=== PATIENT | female | born 1980 | race Caucasian/White ===

== ENCOUNTER 2019-03-28 11:39 | Inpatient (IN) | payer BC, SELFPAY ==
[2019-03-28] VITALS (10 sets, daily range): BP systolic 112–150; BP diastolic 61–102; PULSE 66–104; RESP 16–20; TEMP 36.4–36.8; O2SAT 95–100; BMI 42.6
--- NOTE | 2019-03-28 | ECHO_ITS ---
Patient Info Name: Thania Hancock Age: 38 years : 1980 Gender: Female Ht: 62 in Wt: 230 lbs BSA: 2.20 m2 HR: 110 bpm BP: 150 / 93 mmHg Heart Rhythm: Tachycardia Technical Quality: Fair Exam Date: 03/28/2019 4:27 PM Exam Location: [facility] Card Pulmonary Patient Status: Inpatient Admit Date: 03/28/2019 Staff Ordering Physician: Amando Canales DO Senior Information Systems Architect: Seng Raymundo RDCS Attending Provider: Deon Garcia MD Exam Type: CA echo dop color flow w con Study Info Complete two-dimensional, color flow and Doppler transthoracic echocardiogram is performed with contrast to opacify the left ventrical and to improve the deliniation of the left ventrical endocarial boarders. Contrast/Agitated Saline Contrast/Ag. Saline: Definity Amount: 2.00 ml Administered By: Mesha De León RN History/Risk Factors Pulmonary embolism. Summary 1. Left ventricular systolic function is normal, estimated at 60-65%. 2. There is no increased left ventricular wall thickness. 3. Right ventricular chamber dimension is normal. Left Ventricle Left ventricular chamber dimension is normal. Left ventricular systolic function is normal, estimated at 60-65%. There is no increased left ventricular wall thickness. Left ventricular septal wall motion is normal. The left ventricular diastolic function is normal. Right Ventricle Right ventricular chamber dimension is normal. Right ventricular systolic function is normal. Left Atria Left atrial chamber dimension is normal. Right Atria Right atrial chamber dimension is normal. Aortic Valve The aortic valve is trileaflet. There is no aortic valve sclerosis. There is no aortic valve stenosis. There is no aortic valve regurgitation. Pulmonic Valve The pulmonic valve is normal. There is no pulmonic valve stenosis. There is no pulmonic regurgitation. Mitral Valve The mitral valve has normal leaflets. There is no mitral valve stenosis. There is no mitral valve regurgitation. Tricuspid Valve The tricuspid valve leaflets are normal. There is no significant tricuspid valve stenosis. There is trace tricuspid valve regurgitation. No pulmonary hypertension, estimated pulmonary arterial systolic pressure is 28 mmHg. Pericardium/Pleural The pericardium appears normal. There is no pericardial effusion. Inferior Vena Cava Normal inferior vena cava with >50% collapse upon inspiration consistent with normal right atrial pressure, 10 mmHg. Aorta The aortic root size at the sinus of Valsalva is normal. The prox ascending aorta size is normal. Left Ventricular Outflow Tract Name Value Normal LVOT 2D LVOT Diameter 2.07 cm LVOT Doppler LVOT Peak Gradient 8 mmHg LVOT Mean Gradient 3 mmHg LVOT VTI 20.10 cm LVOT VTI/AV VTI Ratio 0.77 LVOT Stroke Volume 67.39 ml LVOT CO 6.94 l/min LVOT CI 3.16
--- NOTE | ~2019-03-28 | US_ITS ---
EXAMINATION: US venous doppler [facility] DATE: 03/29/2019 15:44 INDICATION: Pulmonary emboli with dyspnea TECHNIQUE: Grayscale ultrasound images without and with compression and Doppler ultrasound images of the bilateral lower extremity veins were obtained. COMPARISON: None. FINDINGS: The visualized portions of right common femoral vein, profunda (deep) femoral vein, femoral vein, pop liteal vein, posterior tibial veins, peroneal veins, gastrocnemius vein and greater saphenous vein ou tflow are patent. The visualized portions of left common femoral vein, profunda femoral vein, femoral vein, popliteal v ein, posterior tibial veins, peroneal veins, gastrocnemius vein and greater saphenous vein outflow ar e patent. IMPRESSION: 1. No deep venous thrombosis in either lower limb. Reviewed, dictated and finalized at location A. NE MAMMAL TRAINER
--- NOTE | ~2019-03-28 | XR_ITS ---
EXAMINATION: XR chest 2V EXAM DATE: 03/28/2019 12:22 INDICATION: Cough and shortness of breath. TECHNIQUE: Frontal and lateral projections of the chest obtained and reviewed. Comparison is made to prior examination from 11/25/2013. FINDINGS: The lungs are clear. There are no pleural effusions. The cardiomediastinal silhouette is within normal limits. There is no pneumothorax suspected. The bones and soft tissues are unremarkab le. IMPRESSION: Normal chest x-ray exam. Reviewed, dictated and finalized at location A. NUE SPECIALIST IMPRESSION: Normal chest x-ray exam.
--- NOTE | ~2019-03-28 | CT_ITS ---
EXAMINATION: CTA chest PE protocol DATE: 03/28/2019 14:00 INDICATION: Dyspnea TECHNIQUE: Computed tomography angiography (CTA) of the chest was performed with 100 mL Omnipaque-350 intravenous contrast timed to evaluate the pulmonary arteries. Coronal maximum intensity projection 3D-reconstructions were created by the technologist. Automated exposure control and iterative reconst ruction technique were employed. Exam dose: 1945.63 mGy-cm total exam DLP. COMPARISON: 11/29/2013 CT pulmonary FINDINGS: There are multiple bilateral pulmonary emboli, involving especially both lower lobes. I te lephoned the findings immediately to ER physician Dr. Canales on 03/28/2019 at 1412 hours. No thoracic aortic aneurysm or dissection. No hilar or mediastinal mass lesion or lymphadenopathy. Th ere is a 4 mm middle lobe nodule. There is mild discoid atelectasis or scarring at the base of the lingula. No pulmonary consolidation . No pericardial or pleural effusion. Included skeletal structures are unremarkable. IMPRESSION: Extensive bilateral pulmonary emboli Reviewed, dictated and finalized at Location A. Reviewed, dictated and finalized at location B. E COVERER
--- NOTE | 2019-03-28 11:56 | ED.SOB ---
HPI - SOB/Dyspnea General Chief Complaint: Shortness of Breath/Dyspnea Stated Complaint: SOB Time Seen by Provider: 03/28/19 11:55 Source: patient Mode of arrival: ambulatory Limitations: no limitations History of Present Illness HPI Narrative: Pt is a 38 y/o female who presents to the ED with c/o SOB with exertion for 2 days. Pt reports associated cough. She states that she gets SOB when she talks or exerts herself in any way. Pt denies a fever, calf pain, or swelling in her extremities. Pt is on control and she denies a H/O blood clots. She denies smoking. MD elicited complaint: shortness of breath Onset (ago): day(s) (2) Exacerbating factors: exertion Relieving factors: rest Associated symptoms: cough Related Data Allergies Allergy/AdvReac Type Severity Reaction Status Date / Time No Known Allergies Allergy Verified 12/29/17 10:27 Review of Systems Review of Systems: All systems reviewed & are unremarkable except as noted in HPI and below Constitutional: Constitutional: Denies fever(s) Cardiovascular: Cardiovascular: Denies edema (to extremities) Respiratory: Respiratory: Reports cough and Reports dyspnea Musculoskeletal: Musculoskeletal: Denies other (calf pain) [facility] Past Medical History Medical History (Updated 03/28/19 @ 15:19 by Amando Canales DO) No significant past medical history Surgical History Surgical History (Updated 03/28/19 @ 12:43 by Patel Bales) Hx of cholecystectomy Family History Family History (Updated 01/05/18 @ 13:06 by DOCTOR UNKNOWN) Grandparent Diabetes mellitus Acute myocardial infarction Mother Hypertension Social History Social History Smoking status: Never smoker Alcohol intake: never Exam Narrative: Exam Narrative: APPEARANCE: No acute distress, nontoxic, resting in bed EYES: EOMI HEENT: Normocephalic, atraumatic, OMM RESPIRATORY: No respiratory distress Clear to auscultation bilaterally with no rhonchi wheezing or rales. CARDIOVASCULAR: Regular rate and rhythm without murmurs rubs or gallops. ABDOMINAL: Soft, nontender, nondistended, no rebound or guarding MUSCULOSKELETAl: Moves all extremities. No clubbing, cyanosis or edema. No calf tenderness NEURO: Awake and alert. Following commands, speech normal, no focal deficits SKIN:: Warm, dry. No rashes lesions or abrasions PSYCHIATRIC: Normal affect/mood, Course Course Emergency Course: Discussed with patient and family results of workup and diagnosis. Discussed need for admission. Patient and family understand and agree to current treatment plan Consultations Consultation #1: Discussed case with Claudia Rodriguez NP for the hospitalist. She is not comfortable with admission until we consult four slide machine setter, Dr. Magana. Date: 03/28/19 Time: 14:43 Consultation #2: Discussed case with Dr. Magana the four slide machine setter. Recommends a stat echo to see if she has a strain, and will admit pt. Date: 03/28/19 Time: 14:46 Consultation #3: Discussed case with Claudia Rodriguez NP for the hospitalist. Accepts admission. Date: 03/28/19 Time: 14:50 Vital Signs Vital signs: Vital Signs Temperature 97.6 F 03/28/19 11:45 Pulse Rate 101 H 03/28/19 11:45 Respiratory Rate 18 03/28/19 11:45 Blood Pressure 137/98 H 03/28/19 11:45 Pulse Oximetry 99 03/28/19 11:45 Temperature 97.6 F 03/28/19 11:45 Pulse Rate 92 03/28/19 14:23 Respiratory Rate 17 03/28/19 14:23 Blood Pressure 147/102 H 03/28/19 14:23 Pulse Oximetry 96 03/28/19 14:23 MDM - SOB/Dyspnea Lab Data Result diagrams: 03/28/19 12:03 03/28/19 12:03 Labs: Lab Results 03/28/19 03/28/19 03/28/19 Range/Units 12:03 12:03 12:03 WBC 11.6 H (4.5-10.0) K/mm3 RBC 4.51 (4.2-5.4) M/mm3 Hgb 13.3 (12.0-15.0) g/dL Hct 40.4 (37.0-47.0) % MCV 89.6 (80-100) fl MCH 29.5 (26-34) pg MCHC 32.9 (32-36)
--- NOTE | 2019-03-28 11:57 | ECG_ITS ---
Measurements Intervals [place] Rate: 99 P: -3 NC: 140 QRS: 27 QRSD: 90 T: 5 QT: 324 QTc: 417 Interpretive Statements SINUS RHYTHM NONSPECIFIC ST & T-WAVE ABNORMALITY- DIFFUSE LEADS BASELINE ARTIFACT- I, III, AVR, AVL, AVF BORDERLINE ECG Electronically Signed On 03-28-2019 12:19:32 LOKIE ENGINEER by Matti Reid D.O.
[2019-03-28 12:09] LABS: Basophils Percent Auto 0.3 % (0.2-1.2); Eosinophils Absolute Auto 4.6 K/mm3 (0-0.3); Eosinophils Percent Auto 39.9 % (0-4.4); Hematocrit 40.4 % (37.0-47.0); Hemoglobin 13.3 g/dL (12.0-15.0); Immature Granulocyte Absolute 0.03 K/mm3 (0.00-0.031); Immature Granulocyte Percent A 0.3 % (0-0.5); Lymphocytes Absolute Auto 3.84 K/mm3 (0.9-3.2); Lymphocytes Percent Auto 33.1 % (18.3-44.2); Mean Corpuscular HGB Conc 32.9 g/dl (32-36); Mean Corpuscular Hemoglobin 29.5 pg (26-34); Mean Corpuscular Volume 89.6 fl (80-100); Monocytes Absolute Auto 0.8 K/mm3 (0.1-0.6); Monocytes Percent Auto 6.5 % (2.6-8.5); Neutrophils Absolute Auto 2.3 K/mm3 (1.3-6.7); Neutrophils Percent Auto 19.9 % (45.5-73.1); Platelet Count Result 222 k/mm3 (150-375); Red Blood Count 4.51 M/mm3 (4.2-5.4); Red Cell Distribution Width 13.1 % (11.5-14.5); White Blood Count 11.6 K/mm3 (4.5-10.0)
[2019-03-28 12:24] LABS: Partial Thromboplastin Time 23.9 SECONDS (22.3-36.8); Prothrombin Time 13.1 Seconds (11.1-14.7)
[2019-03-28 12:25] LABS: Lactic Acid Reflex 0.9 mmol/L (0.7-2.1)
[2019-03-28 12:26] LABS: Alanine Aminotransferase 18 U/L (4-35); Albumin Level 4.4 g/dL (3.5-5.1); Alkaline Phosphatase 91 U/L (38-126); Aspartate Amino Transferase 23 U/L (14-36); Bilirubin,Total 0.3 mg/dL (0.2-1.3); Blood Urea Nitrogen 12 mg/dL (7-17); Calcium 9.3 mg/dL (8.4-10.2); Carbon Dioxide 24 mmol/L (22-30); Chloride 99 mmol/L (98-107); Estimated CRCL calculation 84 ml/min; Estimated Glomerular Filt Rate > 60; Glucose 84 mg/dL (65-105); Potassium 3.5 mmol/L (3.4-5.0); Sodium 135 mmol/L (137-145)
--- NOTE | 2019-03-28 13:09 | PC.NURSE ---
Pt refused flu test at this time. Pt states she will see what the other test say and then maybe she will do it.
[2019-03-28 13:22] LABS: NT Pro B Type Natriuretic Pept 64 PG/ML (5-100); Troponin I < 0.012 ng/mL (0.000-0.034)
[2019-03-28] MEDS: HEPARIN SODIUM 5,000 UNITS/ML VIAL 5500 UNITS IV PUSH (14:56)
[2019-03-28] MEDS: HEPARIN SOD/D5W 100 UNITS/ML 25,000 UNITS/250 ML BAG 13 UNITS IV CONT (15:13)
[2019-03-28] MEDS: PERFLUTREN LIPID MICROSPHERES 1.5 ML VIAL DILUTED TO 10 ML TOTAL VOLUME (16:52)
--- NOTE | 2019-03-28 17:10 | PC.NURSE ---
This patient, Thania Hancock, was admitted to IMU Room 213-01. Patient/family oriented to hospital policies and general routines including ID bracelet, bed and alarms, visiting hours, pain management, procedures, bathroom and other care routines, personal items, smoking policy, room service/diet, and visiting hours. Valuables list has been completed. Information on how to activate the Rapid Response Team has been discussed. Patient/Family are encouraged to report perceived risks to care and to ask questions if they do not understand what they are told or what they should do.
[2019-03-28 18:52] LABS: Troponin I < 0.012 ng/mL (0.000-0.034)
--- NOTE | 2019-03-28 21:30 | PM.IMHP ---
H&P: HPI History of Present Illness Chief complaint: exertional shortness of breath+ Narrative: This is a morbidly obese female with known chronic hypertension who presented to the hospital with a complaint of gradual worsening of exertional shortness of breath over the past week. The patient started to notice approximately 1 week ago that she was having increased shortness of breath when she was going up stairs. A few days later she went for a walk and had increased shortness of breath. Today while she was at work was having a hard time just carrying on a conversation with her coworkers because of her shortness of breath. The patient has had a dry cough during her episodes of shortness of breath but no hemoptysis. She was evaluated in the ER and found to have bilateral pulmonary emboli. She has no previous history of pulmonary emboli. She denies any recent trauma, long travel, or surgeries. She is on OCP and has been for many years. Currently she denies any significant shortness of breath, hemoptysis, chest pain, abdominal pain, dysuria, hematuria, diarrhea, nausea, vomiting, leg swelling, leg pain, leg redness or rectal bleeding. The patient has already been started on IV heparin. STAT echo was obtained and did not demonstrate any right heart strain. Cardiology, Dr. Frazier has been consulted by the ER provider. Review of Systems Review of Systems: All systems reviewed & are unremarkable except as noted in HPI and below PMFSH Past Medical History Medical History HTN (hypertension) with goal to be determined Morbid obesity No significant past medical history Surgical History Surgical History Hx of cholecystectomy Family History Family History Grandparent Diabetes mellitus Acute myocardial infarction Mother Hypertension Social History Social History Smoking status: Never smoker Alcohol intake: never Substance use: never Spiritual care concerns: No Meds Home Medications and Allergies Home Medications Medication Instructions Recorded Confirmed Type losartan 25 mg PO DAILY 03/28/19 03/28/19 History norgestimate-ethinyl estradiol 1 tablet PO HS 03/28/19 03/28/19 History [Sprintec (28)] Allergies Allergy/AdvReac Type Severity Reaction Status Date / Time No Known Allergies Allergy Verified 12/29/17 10:27 Vital Signs Vital Signs - 24 hr 03/28/19 11:45 03/28/19 14:23 03/28/19 17:16 Temperature 36.4 C 36.7 C Pulse Rate 101 H 92 103 H Respiratory Rate 18 17 20 Blood Pressure 137/98 H 147/102 H 150/92 H Pulse Oximetry 99 96 95 03/28/19 17:18 03/28/19 17:19 03/28/19 18:00 Temperature Pulse Rate 66 66 104 H Respiratory Rate 16 16 Blood Pressure 112/61 112/61 Pulse Oximetry 99 99 03/28/19 19:26 03/28/19 20:00 Temperature 36.4 C L 36.7 C Pulse Rate 67 67 Respiratory Rate 20 20 Blood Pressure 131/73 131/73 Pulse Oximetry 100 100 Exam Const: General: cooperative, no acute distress, alert and awake Nutritional Appearance: obese morbidly obese Orientation/consciousness: patient oriented x3 HENMT: Head: normal to inspection General nose exam: Normal external nose present Face and sinus: normal facial exam Mouth: Yes Normal oral and palatal mucosa present and Yes oropharynx normal Eyes: Pupils: Equal, round and reactive pupils present EOM: EOMs intact bilaterally Neck: Neck: supple and no JVD Thyroid: thyroid normal Lymphatic: lymphadenopathy not noted Resp: Effort & Inspection: normal respiratory effort Auscultation: clear to auscultation bilaterally Cardio: Rate: regular rate Rhythm: regular rhythm Heart sounds: no murmurs GI: Inspection: normal to inspection Auscultation: normal bowel sounds Skin: General skin exam: norm
[2019-03-28 22:13] LABS: Troponin I < 0.012 ng/mL (0.000-0.034)
[2019-03-28] MEDS: HEPARIN SODIUM 5,000 UNITS/ML VIAL 3000 UNITS IV PUSH (22:18)
[2019-03-29] VITALS (12 sets, daily range): BP systolic 136–154; BP diastolic 74–93; PULSE 75–98; RESP 18–20; TEMP 35.8–36.3; O2SAT 91–98
[2019-03-29 04:39] LABS: Basophils Percent Auto 0.3 % (0.2-1.2); Eosinophils Absolute Auto 0.1 K/mm3 (0-0.3); Eosinophils Percent Auto 1.1 % (0-4.4); Hematocrit 39.2 % (37.0-47.0); Hemoglobin 12.7 g/dL (12.0-15.0); Immature Granulocyte Absolute 0.03 K/mm3 (0.00-0.031); Immature Granulocyte Percent A 0.3 % (0-0.5); Lymphocytes Absolute Auto 3.78 K/mm3 (0.9-3.2); Mean Corpuscular HGB Conc 32.4 g/dl (32-36); Mean Corpuscular Hemoglobin 29.3 pg (26-34); Mean Corpuscular Volume 90.3 fl (80-100); Mean Platelet Volume 9.5 fl (7.4-10.4); Monocytes Absolute Auto 0.5 K/mm3 (0.1-0.6); Monocytes Percent Auto 5.9 % (2.6-8.5); Neutrophils Absolute Auto 4.8 K/mm3 (1.3-6.7); Neutrophils Percent Auto 51.4 % (45.5-73.1); Platelet Count Result 193 k/mm3 (150-375); Red Blood Count 4.34 M/mm3 (4.2-5.4); Red Cell Distribution Width 13.2 % (11.5-14.5); White Blood Count 9.2 K/mm3 (4.5-10.0)
[2019-03-29 04:53] LABS: Partial Thromboplastin Time 91.2 SECONDS (22.3-36.8)
[2019-03-29 04:57] LABS: Blood Urea Nitrogen 11 mg/dL (7-17); Carbon Dioxide 24 mmol/L (22-30); Chloride 103 mmol/L (98-107); Estimated CRCL calculation 95 ml/min; Estimated Glomerular Filt Rate > 60; Glucose 104 mg/dL (65-105); Potassium 3.7 mmol/L (3.4-5.0); Sodium 136 mmol/L (137-145)
--- NOTE | 2019-03-29 08:22 | PM.CNCAR ---
Assessment and Plan Assessment and plan (1) Morbid obesity: Code(s): E66.01 - Morbid (severe) obesity due to excess calories Status: Chronic (2) HTN (hypertension) with goal to be determined: Code(s): I10 - Essential (primary) hypertension Status: Chronic Assessment and Plan: She is on losartan 25 mg will increase to 50 mg (3) Pulmonary embolism: Qualifiers: Acute cor pulmonale presence: without acute cor pulmonale Chronicity: acute Pulmonary embolism type: unspecified Qualified Code(s): I26.99 - Other pulmonary embolism without acute cor pulmonale Code(s): I26.99 - Other pulmonary embolism without acute cor pulmonale Status: Acute Assessment and Plan: She has bilateral PE, but both are in the lower lobe, and seems to be smaller thrombus, no right ventricular enlargement, indicating that there is no sub massive PE, which means that she can be treated with medical treatment with heparin followed by change to Eliquis. She will need to have venous Doppler to look for the source, and she is on oral contraceptives with possibly is the cause of that. She needs to stop that and then consider other ways of contraception. Will order protein C protein S and factor 5 levels Additional Plan Thank you for allowing me to participate in this patient's care, I will be following up with you. Please do not hesitate to call me for any other inquiry History of Present Illness History of Present Illness Consult date/time: 03/29/19 08:22 38 years old lady with history of obesity, use of oral contraceptives, keep the hospital was with progressive worsening shortness breath and left-sided chest pain. Start having symptoms about 2 weeks but worse last night by the time she arrived to the hospital she was having mild tachypnea and mild tachycardia. CT of the chest was done showed bilateral PE mostly the lower left and lower right pulmonary artery. CT was reviewed by myself, showed bilateral PE but no large burden, and showed normal right ventricular size. Echocardiogram was done in emergency room to look at the right ventricular size also showed normal size of the right ventricle with no significant pulmonary hypertension, these finding are indicative of not a submassive PE. Since admission she was started on heparin which made her feel better, she is feeling better now no more chest pain and shortness breath is a lot better. No leg pain or leg swelling no known history of DVT or PE in the past. She is on oral contraceptives for the past 20 years. No palpitation no syncope no dizziness Reason For Visit: exertional shortness of breath+ Review of Systems Constitutional: Constitutional: Reports fatigue and Reports lethargy Cardiovascular: Cardiovascular: Reports as per HPI Respiratory: Respiratory: Reports dyspnea and Reports dyspnea on exertion PMFSH Past Medical History Medical History HTN (hypertension) with goal to be determined Morbid obesity No significant past medical history Surgical History Surgical History Hx of cholecystectomy Family History Family History Grandparent Diabetes mellitus Acute myocardial infarction Mother Hypertension Social History Social History Smoking status: Never smoker Alcohol intake: never Substance use: never Spiritual care concerns: No Meds Home Medications and Allergies Home Medications Medication Instructions Recorded Confirmed Type losartan 25 mg PO DAILY 03/28/19 03/28/19 History norgestimate-ethinyl estradiol 1 tablet PO HS 03/28/19 03/28/19 History [Sprintec (28)] Allergies Allergy/AdvReac Type Severity Reaction Status Date / Time No Known Allergies Allergy Verified 12/29/17 10:27
[2019-03-29] MEDS: LOSARTAN POTASSIUM 50 MG TABLET PO (09:25)
[2019-03-29] MEDS: APIXABAN 5 MG TABLET 10 MG PO ×2 (09:25→18:39)
--- NOTE | 2019-03-29 12:29 | PM.IMPN ---
Progress Note: A&P Assessment and Plan (1) Pulmonary embolism: Qualifiers: Acute cor pulmonale presence: without acute cor pulmonale Chronicity: acute Pulmonary embolism type: unspecified Qualified Code(s): I26.99 - Other pulmonary embolism without acute cor pulmonale Code(s): I26.99 - Other pulmonary embolism without acute cor pulmonale Status: Acute Assessment and Plan: Patient does not have right ventricular strain nor does she have elevated troponins She is hemodynamically stable She is tolerating anticoagulation Venous Dopplers are pending She can likely be discharged later today if Dopplers are negative Discussed with patient and spouse at bedside possible causes of her pulmonary emboli and likely recovery period of several weeks and likely to continue medication for at least 6-12 months and need to abstain from taking estrogen products Discussed safety measures while taking oral anticoagulants include avoid contact sports climbing power tools and other high risk activities (2) HTN (hypertension) with goal to be determined: Code(s): I10 - Essential (primary) hypertension Status: Chronic Assessment and Plan: stable. monitor blood pressure. continue home losartan. (3) Morbid obesity: Code(s): E66.01 - Morbid (severe) obesity due to excess calories Status: Chronic Assessment and Plan: Likely played a role in her PE Subjective Date/time seen: 03/29/19 12:29 Interval history: No chest pain shortness of breath dizziness palpitations syncope presyncope or bleeding. Weakness numbness. Does have a prior history of rectal bleeding 1 her bowels get off schedule. Has a history of diverticulosis. Was taking estrogen progesterone combination pill for control for about 23 years. Denied family history of thromboembolic disease. Her mother has a history of myocardial infarction. Review of Systems Review of Systems: All systems reviewed & are unremarkable except as noted in HPI and below Exam Narrative: Exam Narrative: HEENT: EOMI, PERRL, pharyngeal mucosa pink and intact NECK: No JVD CHEST: Clear to auscultation. Normal effort. HEART: NL S1/S2, regular, no murmur ABDOMEN: BS+, soft, nontender, no mass, no bruits EXTREMITIES: No cyanosis, edema, or clubbing NEUROLOGIC: CN intact and symmetric to inspection. MUSCULOSKELETAL: Tone and strength symmetric. PSYCH: Alert. Oriented to person, place, and time. Objective Data Vital Signs Vital Signs: Vital Signs - 24 hr 03/28/19 14:23 03/28/19 17:16 03/28/19 17:18 Temperature 98.1 F Pulse Rate 92 103 H 66 Respiratory Rate 17 20 16 Blood Pressure 147/102 H 150/92 H 112/61 Pulse Oximetry 96 95 99 03/28/19 17:19 03/28/19 18:00 03/28/19 19:26 Temperature 97.5 F L Pulse Rate 66 104 H 67 Respiratory Rate 16 20 Blood Pressure 112/61 131/73 Pulse Oximetry 99 100 03/28/19 20:00 03/28/19 22:00 03/28/19 23:51 Temperature 98.0 F 98.2 F Pulse Rate 102 H 98 97 Respiratory Rate 20 20 Blood Pressure 131/73 140/72 Pulse Oximetry 100 97 03/29/19 00:00 03/29/19 02:00 03/29/19 03:55 Temperature Pulse Rate 95 92 88 Respiratory Rate 20 20 Blood Pressure Pulse Oximetry 97 97 03/29/19 04:00 03/29/19 06:00 03/29/19 08:00 Temperature 97.3 F L Pulse Rate 88 82 97 Respiratory Rate 18 Blood Pressure 139/80 Pulse Oximetry 91 03/29/19 08:07 03/29/19 10:15 03/29/19 12:13 Temperature 96.6 F L 96.4 F L Pulse Rate 94 96 89 Respiratory Rate 18 18 Blood Pressure 146/81 H 154/93 H Pulse Oximetry 94 96 Intake/Output Intake/Output: Intake & Output 03/26/19 03/27/19 03/28/19 03/29/19 23:59 23:59 23:59 23:59 Intake Total 480 490 Output Total 400 Balance 480 90 Meds/Results Medications: Active Medications Generic Name Dose Route Start Last Admin Trade Name Freq PRN Reason Stop Dose Admin Apixaban 10 mg 03/29/19 09:00 03/29/19 09:25
[2019-03-29 12:50] LABS: Partial Thromboplastin Time 33.2 SECONDS (22.3-36.8)
--- NOTE | 2019-03-29 17:38 | PM.DS ---
DS: Diagnosis Admitting Diagnosis Admitting Diagnosis: Other pulmonary embolism without acute cor pulmonale Discharge Diagnosis (1) Pulmonary embolism: Qualifiers: Acute cor pulmonale presence: without acute cor pulmonale Chronicity: acute Pulmonary embolism type: unspecified Qualified Code(s): I26.99 - Other pulmonary embolism without acute cor pulmonale Code(s): I26.99 - Other pulmonary embolism without acute cor pulmonale Status: Acute (2) HTN (hypertension) with goal to be determined: Code(s): I10 - Essential (primary) hypertension Status: Chronic (3) Morbid obesity: Code(s): E66.01 - Morbid (severe) obesity due to excess calories Status: Chronic DS: Summary Hospital Course Reason for hospitalization: Dyspnea Hospital Course: Gradual onset of dyspnea. No chest pain. Came to emergency department due to worsening. Found to have bilateral pulmonary emboli on CTA of chest. Troponin negative. Echocardiogram without right ventricular strain. She was anticoagulated heparin. On day of discharge she was transitioned oral apixaban. She tolerated well. Venous Doppler of the legs was negative. She was up and about with minimal dyspnea. She was discharged home with instructions on avoidance of activities that might increase risk of fall or injury as well as instructions to avoid nonsteroidal anti-inflammatory drugs as well as aspirin. She had her spouse were instructed to avoid estrogen containing contraceptives and to seek other forms of contraception if desired. Status at Discharge Functional status at discharge: independent ambulation Overall status at discharge: patient is progressing back to baseline Time Spent with Patient Time attestation: Total time spent providing and/or coordinating discharge services:41 min Time spent: Greater than 30 minutes Exam Narrative: Exam Narrative: HEENT: EOMI, PERRL, pharyngeal mucosa pink and intact NECK: No JVD CHEST: Clear to auscultation. Normal effort. HEART: NL S1/S2, regular, no murmur ABDOMEN: BS+, soft, nontender, no mass, no bruits EXTREMITIES: No cyanosis, edema, or clubbing NEUROLOGIC: CN intact and symmetric to inspection. MUSCULOSKELETAL: Tone and strength symmetric. PSYCH: Alert. Oriented to person, place, and time. DS: Data Data Completed and Pending Labs on day of discharge: Labs from last 24 hours 03/29/19 03/29/19 03/29/19 12:05 12:05 12:05 WBC RBC Hgb Hct MCV MCH MCHC RDW Plt Count MPV Immature Gran % (Auto) Neut % (Auto) Lymph % (Auto) Stephens % (Auto) Eos % (Auto) Baso % (Auto) Lymph # (Auto) Stephens # (Auto) Eos # (Auto) Baso # (Auto) Abs Immat Gran (auto) Absolute Neuts (auto) Absolute Nucleated RBC Nucleated RBC % APTT LA PTT Screen Pending LA PTT Comment Pending dRVVT Screen Pending dRVVT Additional Test Pending Lupus Anticoag Interp Pending Prot C Funct Activity Pending Protein S Activity Pending Factor V Leiden Mutat Pending Factor V Mutat Interp Pending Sodium Potassium Chloride Carbon Dioxide BUN Creatinine Estim Creat Clear Calc Estimated GFR Glucose Calcium Troponin I 03/29/19 03/29/19 03/29/19 12:05 04:24 04:24 WBC RBC Hgb Hct MCV MCH MCHC RDW Plt Count MPV Immature Gran % (Auto) Neut % (Auto) Lymph % (Auto) Stephens % (Auto) Eos % (Auto) Baso % (Auto) Lymph # (Auto) Stephens # (Auto) Eos # (Auto) Baso # (Auto) Abs Immat Gran (auto) Absolute Neuts (auto) Absolute Nucleated RBC Nucleated RBC % APTT 33.2 91.2 H LA PTT Screen LA PTT Comment dRVVT Screen dRVVT Additional Test Lupus Anticoag Interp Prot C Funct Activity Protein S Activity Factor V Leiden Mutat Factor V Mutat Interp Sodium 136 L Potassium 3.7 Chloride
[2019-04-01 05:24] LABS: Hex Phase Conf Chg Test Yes; Lupus dRVVT 1:1 Mix Interpreta Not Indicated; Lupus dRVVT Conf Chg Test Yes; Lupus dRVVT Confirmation Negative (Negative); Lupus dRVVT Screen 57 sec (<=45); LupusdRVVT 1:1Mix Int Chg Test Yes; PTT-LA Screen 39 sec (<=40)
== END 2019-03-29 18:45 | disposition home or self-care (01) | DRG 176 ==
LOC: ANHED 12:38 → ANHIMU 15:19
PROVIDERS: Family Medicine; Specialist; Admitting Provider Internal Medicine; Emergency Provider Emergency Medicine; PCP Family Medicine; Visit Provider Internal Medicine
DX: I26.99 Other pulmonary embolism without acute cor pulmonale (principal); Z68.41 Body mass index [BMI] 40.0-44.9, adult; I10 Essential (primary) hypertension; E66.01 Morbid (severe) obesity due to excess calories
CPT/HCPCS: 36415; 71046; 71275; 80048; 80053; 81241; 83605; 83880; 84484; 85025; 85303; 85306; 85597; 85598; 85610; 85613; 85730; 93005; 93306; 93970; 96365; 96366; 96375; 99291; A9270; C8929; J1644; Q9957; Q9967

== ENCOUNTER 2019-04-02 08:02 | Emergency (ER) | payer BC, SELFPAY ==
[2019-04-02] VITALS (7 sets, daily range): BP systolic 136–154; BP diastolic 83–104; PULSE 78–102; RESP 17–18; TEMP 36.3; O2SAT 97–100
--- NOTE | 2019-04-02 08:13 | ED.DIZZY ---
HPI - Dizziness General Chief Complaint: Dizziness Stated Complaint: Dizzy Time Seen by Provider: 04/02/19 08:10 Source: patient Mode of arrival: ambulatory Limitations: no limitations History of Present Illness HPI Narrative: The pt is a 38 y/o female who presents to the ED c/o dizziness onset today. Pt states that she had a previous PE recently, and was discharged on 03/29/19 with Eliquis. Pt states that she has been eating normally, as well as taking her Eliquis. She states that this morning, she has felt dizzy; she describes this as a lightheadedness. Pt reports feeling like she is going to vomit, shaking, and SOB. She states that she does not quite feel nauseous. She denies vomiting, diarrhea, chills, diaphoresis, cough, sore throat, rhinorrhea, congestion, ABD pain, CP, and LUNDY. Pt notes that she is on her period currently. Pt states that her PCP is Dr. Walker, and that she will be following up with Dr. Walker on 04/07/19. elicited complaint: dizziness Pertinent past history: other (Recent Pulmonary Embolism) Description: lightheadedness Context: change in medication (Eliquis ) Associated symptoms: shortness of breath and other (Feeling like she is going to vomit) Associated neuro symptoms: other (Shaking) Related Data Allergies Allergy/AdvReac Type Severity Reaction Status Date / Time No Known Allergies Allergy Verified 04/02/19 08:13 Review of Systems Review of Systems: All systems reviewed & are unremarkable except as noted in HPI and below Constitutional: Constitutional: Denies chills and Denies excessive sweating ENT: Denies nasal congestion, Denies nasal discharge (Rhinorrhea) and Denies sore throat Cardiovascular: Cardiovascular: Denies chest pain Respiratory: Respiratory: Denies cough and Reports dyspnea Gastrointestinal: Gastrointestinal: Denies abdominal pain, Denies diarrhea, Denies vomiting and Reports other (Feeling like she is going to vomit) Neurologic: Reports dizziness (Feels like lightheadedness), Denies headache(s) and Reports other (Shaking) [facility] Past Medical History Medical History (Updated 04/02/19 @ 11:06 by Mariam Barr MD) HTN (hypertension) with goal to be determined Morbid obesity No significant past medical history Pulmonary embolism Surgical History Surgical History Hx of cholecystectomy Social History Social History Smoking status: Never smoker Alcohol intake: never Substance use: never Gender identity (if verbalized by the patient): Female Spiritual care concerns: No Comments PCP: Dr. Walker Exam Const: General: cooperative, no acute distress and alert Nutritional Appearance: obese Orientation/consciousness: patient oriented x3 Limitations: no limitations HENMT: Mouth: Yes lip normal and Yes moist mucous membranes Eyes: Pupils: Equal, round and reactive pupils present Resp: Effort & Inspection: normal respiratory effort Auscultation: clear to auscultation bilaterally Cardio: Rate: regular rate Rhythm: regular rhythm Peripheral pulses: dorsalis pedis present bilateral 2+ GI: GI Palp: Yes Soft to palpation and No Tenderness to palpation present (GI) Auscultation: normal bowel sounds Back/Spine/Pelvis: Back: No CVA tenderness Skin: General skin exam: normal color Neuro: General: patient oriented x3 Cognition (Neuro): normal cognition Speech: normal speech Extrem: General: normal to inspection, full ROM and no clubbing, cyanosis or edema Psych: Mental Status: mental status grossly normal Affect: normal affect Attitude: cooperative Course Course Emergency Course: Patient reports dizziness has improved after IV fluids. Patient ambulatory in the ED without symptoms. Labs unremarkable. Discussed with patient likelihood her symptoms are due to dehydration and advised increasing her fluid intake and to follow-up with her doctor [facility] [employer]
[2019-04-02] MEDS: LACTATED RINGERS 1,000 ML 999 ML IV CONT (08:45)
[2019-04-02 08:51] LABS: Basophils Percent Auto 0.4 % (0.2-1.2); Eosinophils Absolute Auto 0.1 K/mm3 (0-0.3); Hematocrit 43.1 % (37.0-47.0); Hemoglobin 13.7 g/dL (12.0-15.0); Immature Granulocyte Absolute 0.02 K/mm3 (0.00-0.031); Immature Granulocyte Percent A 0.3 % (0-0.5); Lymphocytes Absolute Auto 2.57 K/mm3 (0.9-3.2); Lymphocytes Percent Auto 35.3 % (18.3-44.2); Mean Corpuscular HGB Conc 31.8 g/dl (32-36); Mean Corpuscular Volume 91.3 fl (80-100); Mean Platelet Volume 9.4 fl (7.4-10.4); Monocytes Absolute Auto 0.5 K/mm3 (0.1-0.6); Monocytes Percent Auto 6.2 % (2.6-8.5); Neutrophils Absolute Auto 4.2 K/mm3 (1.3-6.7); Neutrophils Percent Auto 56.8 % (45.5-73.1); Platelet Count Result 305 k/mm3 (150-375); Red Blood Count 4.72 M/mm3 (4.2-5.4); Red Cell Distribution Width 13.2 % (11.5-14.5); White Blood Count 7.3 K/mm3 (4.5-10.0)
[2019-04-02 09:00] LABS: Add Urine Microscopic? YES; Appearance Urine Cloudy (Clear); Bacteria Urine Trace /hpf; Bilirubin Urine Negative (Negative); Blood Urine 3+ (Negative); Color Urine Yellow (Yellow); Glucose Urine UA Negative (Negative); Ketones Urine Negative (Negative); Leukocyte Esterase Ur Trace LEU/UL (Negative); Mucus Urine Heavy /lpf; Nitrate Urine Negative (Negative); Protein Urine 1+ mg/dL (Negative); RBC Urine >75 /hpf (0-2); Squamous Epithelial Cell Urine Many /hpf (Few); Urobilinogen Urine Negative mg/dL (<2.0)
[2019-04-02 09:07] LABS: Specific Grav Ur 1.032 (1.001-1.035)
[2019-04-02 09:11] LABS: Alanine Aminotransferase 42 U/L (4-35); Albumin Level 4.4 g/dL (3.5-5.1); Alkaline Phosphatase 88 U/L (38-126); Aspartate Amino Transferase 37 U/L (14-36); Bilirubin,Total 0.3 mg/dL (0.2-1.3); Blood Urea Nitrogen 13 mg/dL (7-17); Calcium 9.7 mg/dL (8.4-10.2); Carbon Dioxide 23 mmol/L (22-30); Chloride 102 mmol/L (98-107); Estimated Glomerular Filt Rate > 60; Glucose 99 mg/dL (65-105); Potassium 4.3 mmol/L (3.4-5.0); Sodium 140 mmol/L (137-145)
--- NOTE | 2019-04-06 08:55 | PC.NURSE ---
LATE ENTRY This note is being entered to document information to the patient's record. The following information was omitted on [04/02/2019 1 li LR administered and end time of 0945.
== END 2019-04-02 11:17 | disposition home or self-care (01) ==
PROVIDERS: Emergency Provider Emergency Medicine; PCP Family Medicine
DX: R42 Dizziness and giddiness (principal); I10 Essential (primary) hypertension; Z86.711 Personal history of pulmonary embolism; Z79.01 Long term (current) use of anticoagulants; E66.01 Morbid (severe) obesity due to excess calories; E86.0 Dehydration
CPT/HCPCS: 36415; 80053; 81001; 81025; 85025; 87086; 96360; 99283; J7120

== ENCOUNTER 2019-04-20 01:06 | Emergency (ER) | payer BC, SELFPAY ==
--- NOTE | ~2019-04-20 | CT_ITS ---
EXAMINATION: CT abdomen pelvis w con DATE: 04/20/2019 03:18 INDICATION: Left flank pain. TECHNIQUE: Computed tomography (CT) of the abdomen and pelvis was performed with 100 mL Omnipaque 350 intravenous contrast. Automated exposure control and iterative reconstruction technique were employe d. The dose-length product was 1362.97 mGy-cm. COMPARISON: CT abdomen and pelvis 12/29/2017 FINDINGS: The visualized portions of the lung bases demonstrate mild atelectasis. No pleural effusion . The heart size is normal. No pericardial effusion. Left hepatic lobe is small. There are changes of cholecystectomy. The spleen, pancreas, adrenal glands, and right kidney are normal. There is a 3 mm stone in left kidney. There is diverticulosis of the colon without evidence of diverticulitis. There are no dilated loops of bowel. The appendix is normal. There is a left supraumbilical ventral hernia containing fat. There are no pathologically enlarged lymph nodes. There is no free intraperitoneal fl uid. There is mild thoracolumbar spondylosis. IMPRESSION: 1. Left supraumbilical ventral hernia containing fat. Reviewed, dictated and finalized at location A. E PICKER
[2019-04-20 01:11] VITALS: BP 138/86; PULSE 99; RESP 20; TEMP 36.4; O2SAT 95
[2019-04-20 01:58] VITALS: BP 133/85; PULSE 81; RESP 18; TEMP 36.3; O2SAT 100
--- NOTE | 2019-04-20 02:09 | ED.ABDPAIN ---
HPI - Abdominal Pain General Chief Complaint: Urogenital-Female Stated Complaint: pains in my left side Time Seen by Provider: 04/20/19 02:05 Source: patient and RN notes reviewed Mode of arrival: ambulatory Limitations: no limitations History of Present Illness HPI narrative: Pt is a 38 y/o female who presents to the ED with c/o lt upper ABD pain starting yesterday. She notes that she was recently evaluated in the [place] ED on 03/28/19 for SOB, and states that she was diagnosed with multiple PE's. Pt notes that she was eventually discharged from the hospital on 03/29 on Eliquis. She states that her SOB has since resolved. Pt states that she was evaluated by her PCP, Dr. Walker, on 04/07/19, and notes that she was diagnosed with a UTI and placed on Keflex. She states that she never had pain with urination, but notes that she began having difficulty urinating 3 days ago. Pt notes that she then developed an intense pain in her lt upper ABD earlier yesterday. She reports nausea accompanying her pain as well as chills and ABD distension, but denies any vomiting or diarrhea. Pt states that she took Tylenol for her pain around 22:30 yesterday. MD elicited complaint: abdominal pain Onset (ago): day(s) (1) Location: other (lt upper ABD) Context: confirms recent antibiotic use (Keflex) Associated symptoms: nausea, chills and other (ABD distension; urinary retention) Treatments prior to arrival: other (Tylenol) Related Data Home Medications Medication Instructions Recorded Confirmed apixaban 5 mg tablet 5 mg PO BID tablet 04/07/19 04/07/19 Allergies Allergy/AdvReac Type Severity Reaction Status Date / Time No Known Allergies Allergy Verified 04/07/19 16:24 Review of Systems Review of Systems: Narrative: CONSTITUTIONAL: Denies fever or sweats. Reports chills. RESPIRATORY: Denies cough or dyspnea. GASTROINTESTINAL: Reports lt upper abdominal pain, nausea, and ABD distension. Denies vomiting or diarrhea. GENITOURINARY: Denies dysuria or hematuria. Reports urinary retention. All systems reviewed & are unremarkable except as noted in HPI and below PMFSH Past Medical History Medical History (Updated 04/20/19 @ 04:05 by Joycelyn Healy MD) Diverticulitis Hypertension Morbid obesity Pulmonary embolism Surgical History Surgical History Hx of cholecystectomy Social History Social History Smoking status: Never smoker Second hand tobacco smoke exposure: No Alcohol intake: never Substance use: never Substance use type: does not use Gender identity (if verbalized by the patient): Female Spiritual care concerns: No Agree to blood products: Yes Exam Narrative: Exam Narrative: GENERAL: Well-appearing, well-nourished, and in no acute distress. HEAD: Normocephalic, atraumatic. EYES: PERRLA and EOMI. ENT: Nares clear, no rhinorrhea or epistaxis. Mucous membranes moist. NECK: Supple. CHEST: Clear to auscultation. No respiratory distress. HEART: Regular rate and rhythm. No murmur heard. Normal peripheral pulses. ABDOMEN: Soft, nondistended, normal active bowel sounds. Lt sided ABD tenderness and lt flank tenderness. EXTREMITIES: Normal range of motion. No edema. SKIN: Warm, dry, no rash. NEURO: No focal deficits. Alert and oriented. Course Vital Signs Vital signs: Vital Signs Temperature 36.4 C 04/20/19 01:11 Pulse Rate 99 04/20/19 01:11 Respiratory Rate 20 04/20/19 01:11 Blood Pressure 138/86 04/20/19 01:11 Pulse Oximetry 95 04/20/19 01:11 Temperature 36.8 C 04/20/19 03:20 Pulse Rate 84 04/20/19 03:20 Respiratory Rate 16 04/20/19 03:20 Blood Pressure 134/87 04/20/19 03:20 Pulse Oximetry 100 04/20/19 03:20 MDM - Abdominal Pain MDM Narrative Medical decision making narrative: Patient presented with difficulty with urination as well as concern for recurrent UTI even though she recentl
[2019-04-20] MEDS: MORPHINE SULFATE 4 MG/ML INJ IV PUSH (02:46)
[2019-04-20] MEDS: SODIUM CHLORIDE 0.9% IV 1,000 ML 999 ML IV CONT (02:47)
[2019-04-20] MEDS: ONDANSETRON INJ 4 MG/2 ML VIAL IV PUSH (02:47)
[2019-04-20 03:00] LABS: Basophils Percent Auto 0.3 % (0.2-1.2); Eosinophils Absolute Auto 0.1 K/mm3 (0-0.3); Hemoglobin 12.2 g/dL (12.0-15.0); Immature Granulocyte Absolute 0.03 K/mm3 (0.00-0.031); Immature Granulocyte Percent A 0.3 % (0-0.5); Lymphocytes Absolute Auto 2.71 K/mm3 (0.9-3.2); Lymphocytes Percent Auto 29.7 % (18.3-44.2); Mean Corpuscular HGB Conc 32.1 g/dl (32-36); Mean Corpuscular Hemoglobin 29.3 pg (26-34); Mean Corpuscular Volume 91.3 fl (80-100); Mean Platelet Volume 9.7 fl (7.4-10.4); Monocytes Absolute Auto 0.5 K/mm3 (0.1-0.6); Neutrophils Absolute Auto 5.8 K/mm3 (1.3-6.7); Neutrophils Percent Auto 63.7 % (45.5-73.1); Platelet Count Result 270 k/mm3 (150-375); Red Blood Count 4.16 M/mm3 (4.2-5.4); Red Cell Distribution Width 13.3 % (11.5-14.5); White Blood Count 9.1 K/mm3 (4.5-10.0)
[2019-04-20 03:10] LABS: Blood Urea Nitrogen 14 mg/dL (8-26); Estimated CRCL calculation 94 ml/min; Estimated Glomerular Filt Rate > 60
[2019-04-20 03:17] LABS: Add Urine Microscopic? YES; Alanine Aminotransferase 34 U/L (4-35); Alkaline Phosphatase 79 U/L (38-126); Appearance Urine Cloudy (Clear); Aspartate Amino Transferase 31 U/L (14-36); Bilirubin Urine Negative (Negative); Bilirubin,Total 0.3 mg/dL (0.2-1.3); Blood Urea Nitrogen 14 mg/dL (7-17); Blood Urine 2+ (Negative); Calcium 9.2 mg/dL (8.4-10.2); Carbon Dioxide 23 mmol/L (22-30); Chloride 102 mmol/L (98-107); Color Urine Yellow (Yellow); Estimated CRCL calculation 94 ml/min; Estimated Glomerular Filt Rate > 60; Glucose 116 mg/dL (65-105); Glucose Urine UA Negative (Negative); Ketones Urine Negative (Negative); Leukocyte Esterase Ur 1+ LEU/UL (Negative); Lipase 60 U/L (23-300); Mucus Urine Moderate /lpf; Nitrate Urine Negative (Negative); Potassium 4.2 mmol/L (3.4-5.0); Protein Urine Negative (Negative); Sodium 138 mmol/L (137-145); Specific Grav Ur 1.026 (1.001-1.035); Squamous Epithelial Cell Urine Many /hpf (Few); Urobilinogen Urine Negative mg/dL (<2.0)
[2019-04-20 03:20] VITALS: BP 134/87; PULSE 84; RESP 16; TEMP 36.8; O2SAT 100
== END 2019-04-20 04:36 | disposition home or self-care (01) ==
PROVIDERS: Emergency Provider Emergency Medicine; PCP Family Medicine
DX: N12 Tubulo-interstitial nephritis, not specified as acute or chronic (principal); I10 Essential (primary) hypertension; E66.01 Morbid (severe) obesity due to excess calories; Z68.41 Body mass index [BMI] 40.0-44.9, adult; Z86.711 Personal history of pulmonary embolism
CPT/HCPCS: 36415; 74177; 80053; 81001; 81025; 83690; 85025; 87077; 87086; 87088; 87186; 96361; 96374; 96375; 99284; J0131; J2270; J2405; J7030; Q9967

== ENCOUNTER 2019-07-28 09:48 | Outpatient (CLI) | payer BC, SELFPAY ==
--- NOTE | ~2019-07-28 | CT_ITS ---
EXAMINATION: CTA chest PE protocol DATE: 07/28/2019 10:34 INDICATION: 3 month follow-up; extensive bilateral pulmonary emboli reported on 03/28/2019 CT pulmonary scan TECHNIQUE: Computed tomography angiography (CTA) of the chest was performed with 100 mL Omnipaque-350 intravenous contrast timed to evaluate the pulmonary arteries. Coronal maximum intensity projection 3D-reconstructions were created by the technologist. Automated exposure control and iterative reconst ruction technique were employed. Exam dose: 566.36 mGy-cm total exam DLP. COMPARISON: 03/28/2019 CT pulmonary scan FINDINGS: There is moderate contrast opacification of the pulmonary arteries and no evidence of pulmo nary embolism at this time. Interval resolution of bilateral extensive pulmonary emboli since 0 No thoracic aortic aneurysm or dissection. No hilar or mediastinal mass lesion or lymphadenopathy. There are mild nonspecific patchy bilateral lower lobe groundglass infiltrates. No other pulmonary in filtrate or consolidation or pulmonary mass lesion or pneumothorax. Mild old pulmonary granulomatous disease. IMPRESSION: Resolution of bilateral pulmonary emboli since 03/28/2019 Nonspecific bilateral lower lobe patchy groundglass infiltrates Reviewed, dictated and finalized at [facility]. Reviewed, dictated and finalized at location A.
[2019-07-28 10:26] LABS: Estimated Glomerular Filt Rate > 60
== END 2019-07-28 09:49 | disposition home or self-care (01) ==
LOC: ANHIMG 09:52
PROVIDERS: PCP Family Medicine; Visit Provider Family Medicine
DX: I26.99 Other pulmonary embolism without acute cor pulmonale (principal); R91.8 Other nonspecific abnormal finding of lung field
CPT/HCPCS: 36415; 71275; Q9967

== ENCOUNTER 2020-05-11 13:02 | Outpatient (CLI) | payer BC, SELFPAY | END 2020-05-11 13:03 | disposition home or self-care (01) | LOC: ANHCOVIDVC 13:02 | PROVIDERS: PCP Family Medicine | DX: Z23 Encounter for immunization (principal) | CPT/HCPCS: 0001A; 91300 ==

== ENCOUNTER 2020-06-01 13:03 | Outpatient (CLI) | payer BC, SELFPAY | END 2020-06-01 13:04 | disposition home or self-care (01) | LOC: ANHCOVIDVC 13:03 | PROVIDERS: PCP Family Medicine | DX: Z23 Encounter for immunization (principal) | CPT/HCPCS: 0002A; 91300 ==

== ENCOUNTER → 2022-11-21 11:22 | Outpatient (CLI) | payer BC, SELFPAY ==
--- NOTE | ~2022-11-21 | MM_ITS ---
EXAMINATION: MM screening jeffrey BI w cheryl HISTORY: Screening mammogram TECHNIQUE: Craniocaudal and mediolateral oblique 3-D tomosynthesis images were obtained and synthetic 2-D images were generated. CAD analysis was submitted and interpreted. COMPARISON: No prior mammogram is available for comparison at this institution. BREAST PARENCHYMAL COMPOSITION: The breasts are almost entirely fatty. FINDINGS: There is no evidence of suspicious mass, calcification, or architectural distortion to sugg est malignancy in either breast. There has been no suspicious interval change. IMPRESSION: 1. No mammographic evidence of malignancy. 2. Recommend routine screening mammography in one year. BI-RADS Category 1: Negative Reviewed, dictated and finalized at location A.
== END ==
PROVIDERS: PCP Nurse Practitioner; Visit Provider Nurse Practitioner
DX: Z12.31 Encounter for screening mammogram for malignant neoplasm of breast (principal)
CPT/HCPCS: 77063; 77067

== ENCOUNTER 2022-12-02 16:23 | Emergency (ER) | payer BC, SELFPAY ==
--- NOTE | ~2022-12-02 | XR_ITS ---
EXAMINATION: XR chest 1V portable INDICATION: Chills, nausea and vomiting TECHNIQUE: Portable AP chest at 1923 hours COMPARISON: 03/28/2019 FINDINGS: The lungs are free of acute opacities. No pleural effusion or pneumothorax. The cardiomedia stinal silhouette is normal. IMPRESSION: 1. No acute cardiopulmonary abnormality. Reviewed, dictated and finalized at location F.
--- NOTE | ~2022-12-02 | CT_ITS ---
EXAMINATION: CT abdomen pelvis w con INDICATION: Suprapubic and right lower quadrant pain TECHNIQUE: Computed tomographic images of the abdomen and pelvis were obtained after the administrati on of 100 cc of Omnipaque 350 intravenous contrast. The dose-length product (DLP) was 1523.14 mGy-cm. Automated exposure control and iterative reconstruction technique were employed. COMPARISON: 04/20/2019 FINDINGS: Minimal dependent atelectasis is present in the lung bases. The heart size is normal. Antonio es of cholecystectomy are noted. The liver, spleen, pancreas, and adrenal glands are normal. Hypoatte nuating lesions in the kidneys, measuring up to 5 mm on the right, are too small to characterize but likely represent cysts. No pathologically enlarged abdominal or pelvic lymph nodes are identified. No free intraperitoneal gas or evidence of bowel obstruction. Colonic diverticula are noted. There is w all thickening of the sigmoid colon. There is edematous stranding of the perisigmoid fat. No perisigm oid abscess or perforation are identified. Again noted is a left supraumbilical hernia containing fat . There is mild lumbar spondylosis. IMPRESSION: 1. Uncomplicated acute sigmoid diverticulitis. Reviewed, dictated and finalized at location F.
[2022-12-02 16:31] VITALS: BP 142/86; PULSE 111; RESP 18; TEMP 36.9; O2SAT 98
[2022-12-02 16:53] LABS: Basophils Percent Auto 0.2 % (0.2-1.2); Hematocrit 43.6 % (37.0-47.0); Immature Granulocyte Absolute 0.07 K/mm3 (0.00-0.031); Immature Granulocyte Percent A 0.4 % (0-0.5); Lymphocytes Absolute Auto 2.19 K/mm3 (0.9-3.2); Lymphocytes Percent Auto 12.5 % (18.3-44.2); Mean Corpuscular HGB Conc 32.1 g/dl (32-36); Mean Corpuscular Hemoglobin 29.7 pg (26-34); Mean Corpuscular Volume 92.4 fl (80-100); Mean Platelet Volume 9.2 fl (7.4-10.4); Monocytes Absolute Auto 0.8 K/mm3 (0.1-0.6); Monocytes Percent Auto 4.4 % (2.6-8.5); Neutrophils Absolute Auto 14.5 K/mm3 (1.3-6.7); Neutrophils Percent Auto 82.5 % (45.5-73.1); Platelet Count Result 258 k/mm3 (150-375); Red Blood Count 4.72 M/mm3 (4.2-5.4); Red Cell Distribution Width 13.6 % (11.5-14.5); White Blood Count 17.5 K/mm3 (4.5-10.0)
[2022-12-02 17:01] LABS: Appearance Urine Cloudy (Clear); Bacteria Urine Rare /hpf; Bilirubin Urine Negative (Negative); Blood Urine 2+ (Negative); Color Urine Dark Yellow (Yellow); Glucose Urine UA Negative (Negative); Ketones Urine 2+ mg/dL (Negative); Leukocyte Esterase Ur Negative LEU/UL (Negative); Nitrate Urine Negative (Negative); Non Pathogenic Casts 0-2; Protein Urine Trace mg/dL (Negative); Specific Grav Ur 1.031 (1.001-1.035); Squamous Epithelial Cell Urine Moderate /hpf (Few); pH Urine 5.5 (5.0-9.0)
[2022-12-02 17:02] LABS: Add Urine Microscopic? YES
[2022-12-02 17:04] LABS: Alanine Aminotransferase 35 U/L (6-35); Albumin Level 4.6 g/dL (3.5-5.1); Alkaline Phosphatase 69 U/L (38-126); Anion Gap 7 mmol/L (8-16); Aspartate Amino Transferase 30 U/L (14-36); Bilirubin,Total 0.8 mg/dL (0.2-1.3); Blood Urea Nitrogen 12 mg/dL (7-17); Calcium 9.6 mg/dL (8.4-10.2); Carbon Dioxide 25 mmol/L (22-30); Chloride 104 mmol/L (98-107); Estimated CRCL calculation 96 ml/min; Estimated Glomerular Filt Rate > 60; Glucose 112 mg/dL (65-110); Lipase 45 U/L (23-300); Potassium 3.8 mmol/L (3.4-5.0); Sodium 136 mmol/L (137-145)
[2022-12-02 19:00] VITALS: BP 144/81; PULSE 100; RESP 14; O2SAT 95
--- NOTE | 2022-12-02 19:08 | ECG_ITS ---
Measurements Intervals Peridot Rate: 103 P: -12 NH: 143 QRS: 19 QRSD: 89 T: -6 QT: 321 QTc: 421 Interpretive Statements SINUS TACHYCARDIA NONSPECIFIC T-WAVE ABNORMALITY ABNORMAL ECG COMPARED TO ECG 03/28/2019 12:01:37 SINUS TACHYCARDIA NOW PRESENT T-WAVE ABNORMALITY NOW PRESENT Electronically Signed On 12-03-2022 10:28:09 CDT by Mata Iniguez M.D.
--- NOTE | 2022-12-02 19:11 | ED.ABDPAIN ---
HPI - Abdominal Pain General Chief Complaint: Abdominal Pain Stated Complaint: diverticulitis flare up Time Seen by Provider: 12/02/22 17:06 History of Present Illness HPI narrative: 42-year-old female with history of hypertension, diverticulitis and prior cholecystectomy reports for evaluation for generalized abdominal cramping that started last night. She reports associated nausea and 1 episode of vomiting today. She reports a fever at home of 100.2 and chills. Last menstrual period unknown, she is on Depo. She denies aggravating or alleviating factors. Her last meal by mouth was this morning at 700, she ate yogurt. She denies cough, congestion, hematuria or dysuria, coffee-ground emesis, hematemesis, headache, neck pain, back pain. Reports taking Pepto earlier today without relief. Related Data Home Medications Medication Instructions Recorded Confirmed cholecalciferol (vitamin D3) 125 125 mcg PO DAILY 08/21/21 08/29/22 mcg (5,000 unit) capsule cbqhkqfg-eiz-nlqy-FA-Ca carb-vit K 1 tablet PO DAILY 08/21/21 08/29/22 18 mg iron-400 mcg-500 mg tablet (One-A-Day Womens Formula) Allergies Allergy/AdvReac Type Severity Reaction Status Date / Time No Known Allergies Allergy Verified 12/02/22 16:49 Review of Systems Review of Systems: CONSTITUTIONAL: See HPI EYES: Denies visual changes, redness, or discharge. ENT: Denies rhinorrhea, congestion, sore throat, or otalgia. CARDIOVASCULAR: Denies chest pain, palpitations, or edema. RESPIRATORY: Denies cough or dyspnea. GASTROINTESTINAL: See HPI GENITOURINARY: Denies dysuria or hematuria. SKIN: Denies rash or itching. MUSCULOSKELETAL: Denies back pain, joint pain, or myalgia. NEUROLOGIC: Denies headache, numbness, dizziness, or weakness. PSYCHIATRIC: Denies anxiety or depression. [facility] Past Medical History Medical History Diverticulitis Hypertension Morbid obesity Pulmonary embolism Surgical History Surgical History Hx of cholecystectomy Family History Family History Grandparent Diabetes mellitus Acute myocardial infarction Mother Hypertension Social History Social History Smoking status: Never smoker Second hand tobacco smoke exposure: No Alcohol intake: never Substance use: never Substance use type: does not use Lack of Transportation: No Lack of Food: Never True Current Housing: I Have Housing Concerned About Future Housing: No Difficulty Paying Gas/Electric Bills: No Difficulty Paying for Meds: No Currently Unemployed: No Education: Bachelor's Degree Difficulty w/ Childcare or Family Care: No Living arrangements: with family Occupation/Education: occupation Gender identity (if verbalized by the patient): Female Spiritual care concerns: No Agree to blood products: Yes Exam Narrative: GENERAL: Well-appearing, in no acute distress. Patient resting comfortably in exam bed. She is pleasant and conversational. HEAD: Normocephalic EYES: PERRLA ENT: Nares clear. Mucous membranes moist. Oropharynx without tonsillar hypertrophy exudate or other lesions. NECK: Supple. CHEST: No respiratory distress. Clear to auscultation, no adventitious breath sounds. HEART: Regular rate and rhythm. No murmur heard. Normal peripheral pulses. ABDOMEN: Normal active bowel sounds. Abdomen soft with tenderness in the suprapubic region and right lower quadrant. No guarding, rebound or rigidity. No overlying skin changes. No CVA tenderness. EXTREMITIES: Normal range of motion. No edema. SKIN: Warm, dry, no rash. NEURO: No focal deficits. Alert and oriented x3. PSYCH: Normal mood and affect. Course Vital Signs Vital signs: Vital Signs Temperature 98.4 F 12/02/22 1
[2022-12-02] MEDS: SODIUM CHLORIDE 0.9% IV 1,000 ML 999 ML IV CONT (19:55)
[2022-12-02] MEDS: ONDANSETRON INJ 4 MG/2 ML VIAL IV PUSH (19:55)
[2022-12-02] MEDS: MORPHINE SULFATE (*CRX) 4 MG/ML INJ IV PUSH (19:55)
[2022-12-02 19:59] LABS: INR 1.2; Prothrombin Time 15.6 Seconds (11.1-14.7)
[2022-12-02 20:00] VITALS: BP 144/87; PULSE 103; RESP 14; O2SAT 95
[2022-12-02 20:02] LABS: Influenza A QL RT-PCR Negative (Negative); Influenza B QL RT-PCR Negative (Negative); SARS-CoV-2 RNA PCR Negative (Negative)
[2022-12-02 21:00] VITALS: BP 137/78; PULSE 100; RESP 14; O2SAT 95
[2022-12-02] MEDS: AMOXICILLIN/CLAVULANATE K 875-125 MG TAB 1 TABLET PO (21:26)
[2022-12-02] MEDS: KETOROLAC 30 MG/ML VIAL (*BKC) IV PUSH (21:27)
[2022-12-02 21:45] VITALS: BP 131/86; PULSE 100; RESP 19; O2SAT 99
== END 2022-12-02 21:45 | disposition home or self-care (01) ==
PROVIDERS: Emergency Medicine; Emergency Provider Physician Assistant; PCP Family Medicine
DX: K57.32 Diverticulitis of large intestine without perforation or abscess without bleeding (principal); I10 Essential (primary) hypertension; Z86.711 Personal history of pulmonary embolism
CPT/HCPCS: 36415; 71045; 74177; 80053; 81001; 81025; 83605; 83690; 85025; 85610; 85730; 87086; 87088; 87636; 93005; 96361; 96374; 96375; 99284; A9270; J1885; J2270; J2405; J7030; Q9967

== ENCOUNTER 2024-01-08 05:47 | Day surgery (SDC) | payer BC, SELFPAY ==
[2023-12-30 08:45] VITALS: BMI 37.5
[2024-01-08 06:26] VITALS: BP 118/80; PULSE 93; RESP 18; TEMP 36.1; O2SAT 99; BMI 38.2
[2024-01-08] MEDS: LACTATED RINGERS 1,000 ML 150 ML IV CONT (06:38)
--- NOTE | 2024-01-08 07:00 | WPDANESEPPF ---
Anes - Initial Pre Proc Eval Procedure: Operation Date: 01/08/24 07:30 Proposed Procedures p Screening Colonoscopy - Lauro Nolasco MD Date/Time: 01/08/24 07:00 Surgeon: Lauro Nolasco MD Pre Op Diagnosis: neopleasm screening Patient Data Age: 43 Gender: F Height: 1.57 m Weight: 94.8 kg Last Vital Signs Temp 97 F L 01/08/24 06:26 Pulse 93 01/08/24 06:26 Resp 18 01/08/24 06:26 BP 118/80 01/08/24 06:26 Pulse Ox 99 01/08/24 06:26 O2 Del Method Room Air 01/08/24 06:26 Allergies Allergy/AdvReac Type Severity Reaction Status Date / Time No Known Allergies Allergy Verified 01/08/24 06:24 Home Medications Medication Instructions Recorded Confirmed Type qkuwkxse-lep-lvxg-FA-Ca carb-vit K 1 tablet PO DAILY 08/21/21 01/08/24 History 18 mg iron-400 mcg-500 mg tablet (One-A-Day Womens Formula) losartan 100 mg tablet 100 mg PO DAILY #90 tabs 09/07/23 01/08/24 Rx medroxyprogesterone 150 mg/mL See Rx Instructions .Route .COMPLEX 12/30/23 01/08/24 History intramuscular syringe semaglutide (weight loss) 1 mg/0.5 2 mg subcut WEEKLY 12/30/23 01/08/24 History mL subcutaneous pen injector Patient hx anesthesia problems: none Family hx anesthesia problems: none Results Review: All pre-operative results and documents have been reviewed as part of the pre-operative evaluation. [facility] Past Medical History Medical History Diverticulitis Hypertension Morbid obesity Pulmonary embolism Surgical History Surgical History Hx of cholecystectomy Family History Family History Grandparent Diabetes mellitus Acute myocardial infarction Mother Hypertension Social History Social History Smoking status: Never smoker Second hand tobacco smoke exposure: No Alcohol intake: never Substance use: never Substance use type: does not use Lack of Transportation: No Lack of Food: Never True Current Housing: I Have Housing Concerned About Future Housing: No Difficulty Paying Gas/Electric Bills: No Difficulty Paying for Meds: No Currently Unemployed: No Education: Bachelor's Degree Difficulty w/ Childcare or Family Care: No Living arrangements: with family Occupation/Education: occupation Gender identity (if verbalized by the patient): Female Spiritual care concerns: No Agree to blood products: Yes Anes - Eval Final PreProcedure Day of Procedure 01/08/24 07:00 Patient weight: obese Heart: regular rate and rhythm Lungs: clear to auscultation Airway: Mallampati scale and special considerations (Missing tooth on the lower R aspect. ) Neurological: alert and oriented Last oral intake: >/= 8 hours ASA classification: III Emergent: no Anesthetic plan: proceed Anesthesia type and monitoring: general GIVS and standard monitoring Results Review: All pre-operative results and documents have been reviewed as part of the pre-operative evaluation. HTN, obestiy, hx of PE 2020 attributed to OCP at the time, heme workup neg per pt. Not currently on AC. Ozempic has been on hold for approx 2 weeks. Informed Consent: The patient's anesthetic plan and its attendant risks and benefits were discussed with the patient/family/POA. Questions were solicited and answers provided to the satisfaction of the patient/family/POA.
--- NOTE | 2024-01-08 07:33 | PM.IMHP ---
H&P: HPI History of Present Illness Date/Time: 01/08/24 07:33 Chief Complaint: Family history of colorectal cancer Narrative: this patient's grandfather and paternal uncle had colon cancer at age 50. She is asymptomatic and comes for the 1st time for colonoscopy screening. Review of Systems Review of Systems: All systems reviewed & are unremarkable except as noted in HPI and below PMFSH Past Medical History Medical History Diverticulitis Hypertension Morbid obesity Pulmonary embolism Surgical History Surgical History Hx of cholecystectomy Family History Family History Grandparent Diabetes mellitus Acute myocardial infarction Mother Hypertension Social History Social History Smoking status: Never smoker Second hand tobacco smoke exposure: No Alcohol intake: never Substance use: never Substance use type: does not use Lack of Transportation: No Lack of Food: Never True Current Housing: I Have Housing Concerned About Future Housing: No Difficulty Paying Gas/Electric Bills: No Difficulty Paying for Meds: No Currently Unemployed: No Education: Bachelor's Degree Difficulty w/ Childcare or Family Care: No Living arrangements: with family Occupation/Education: occupation Gender identity (if verbalized by the patient): Female Spiritual care concerns: No Agree to blood products: Yes Meds Home Medications and Allergies Home Medications Medication Instructions Recorded Confirmed Type [id number] carb-vit K 1 tablet PO DAILY 08/21/21 01/08/24 History 18 mg iron-400 mcg-500 mg tablet (One-A-Day Womens Formula) losartan 100 mg tablet 100 mg PO DAILY #90 tabs 09/07/23 01/08/24 Rx medroxyprogesterone 150 mg/mL See Rx Instructions .Route .COMPLEX 12/30/23 01/08/24 History intramuscular syringe semaglutide (weight loss) 1 mg/0.5 2 mg subcut WEEKLY 12/30/23 01/08/24 History mL subcutaneous pen injector Allergies Allergy/AdvReac Type Severity Reaction Status Date / Time No Known Allergies Allergy Verified 01/08/24 06:24 Vital Signs Vital Signs - 24 hr 01/08/24 06:26 Temperature 97 F L Pulse Rate 93 Respiratory Rate 18 Blood Pressure 118/80 Pulse Oximetry 99 Oxygen Delivery Room Air Exam Const: General: cooperative and healthy appearing Resp: Effort & Inspection: normal respiratory effort and able to speak in complete sentences Auscultation: clear to auscultation bilaterally Cardio: Rate: regular rate Rhythm: regular rhythm GI: Inspection: normal to inspection GI Palp: No No hepatosplenomegaly present Auscultation: normal bowel sounds Rectal Exam: deferred Skin: General skin exam: normal color Psych: Appearance: grossly normal Mental Status: mental status grossly normal Assessment and Plan Assessment and plan (1) Family history of colon cancer: Code(s): Z80.0 - Family history of malignant neoplasm of digestive organs Status: Acute Assessment and Plan: The patient is deemed a good candidate for the procedure. Consent signed. Will proceed.
[2024-01-08 07:51] VITALS: BP 112/72; PULSE 87; RESP 24; O2SAT 100
[2024-01-08 08:01] VITALS: BP 107/70; PULSE 79; RESP 22; O2SAT 100
[2024-01-08 08:11] VITALS: BP 102/68; PULSE 76; RESP 22; O2SAT 100
[2024-01-11 10:01] LABS: BEDSIDEPREGUCG Negative (Negative)
== END 2024-01-08 08:30 | disposition home or self-care (01) ==
PROVIDERS: Anesthesiology; PCP Family Medicine; Referring Provider Physician Assistant Medical; Visit Provider Internal Medicine Gastroenterology
PROC: 0DJD8ZZ Inspection of Lower Intestinal Tract, Via Natural or Artificial Opening Endoscopic (ICD-10-PCS; CPT 45378; principal; 2024-01-08 07:30)
DX: Z12.11 Encounter for screening for malignant neoplasm of colon (principal); K57.30 Diverticulosis of large intestine without perforation or abscess without bleeding; I10 Essential (primary) hypertension; E66.9 Obesity, unspecified; Z68.38 Body mass index [BMI] 38.0-38.9, adult; Z79.85 Long-term (current) use of injectable non-insulin antidiabetic drugs; Z98.890 Other specified postprocedural states; Z90.49 Acquired absence of other specified parts of digestive tract; Z86.711 Personal history of pulmonary embolism; Z87.19 Personal history of other diseases of the digestive system; Z80.0 Family history of malignant neoplasm of digestive organs; Z82.49 Family history of ischemic heart disease and other diseases of the circulatory system
CPT/HCPCS: 45378; J2003; J2704; J7120